=== PATIENT | male | born 1945 | race Caucasian/White ===

== ENCOUNTER → 2019-04-17 | Outpatient (CLI) | payer MEDICARE | END | disposition home or self-care (01) | LOC: PCVCCLINIC 11:00 | PROVIDERS: ATTEND Internal Medicine | DX: I25.10 Atherosclerotic heart disease of native coronary artery without angina pectoris (principal); I10 Essential (primary) hypertension; E11.9 Type 2 diabetes mellitus without complications; E78.5 Hyperlipidemia, unspecified | CPT/HCPCS: 93005; G0463 ==

== ENCOUNTER → 2019-05-02 | Outpatient (CLI) | payer MEDICARE ==
--- NOTE | 2019-05-04 11:59 | PCVCIMAG ---
APPROVED REPORT Imaging Protocol: Rest Tc-99m/Stress Tc-99m 1 day Study performed: 05/02/2019 09:06:10 Indication: CAD Patient Location: Out-Patient Stress Nurse: Evonne Lane RN, [facility] Aden Tech:Carlito Vasquez NMMARIVELB Ht: 6 ft 1 in Wt: 252 lbs BSA: 2.37 m2 HR: 54 bpm BP: 127/60 mmHg BMI: 33.2 Rhythm: Sinus Bradycardia, Incomplete RBBB Medical History Medical History: Age, Hyperlipidemia, HTN, HI, Dm Non insulin, Former Smoker Medications: Proscar, Lisinopril, Simvastatin Allergies: No known drug allergies Previous Cardiac Procedures: PCI Pretest Chest Pain Characteristics: No chest pain Exercise History: Physically active Resting Data Rest SPECT myocardial perfusion imaging was performed in supine position 45 minutes following the intravenous injection of 11.8 mCi of Tc-99m Sestamibi. Time of rest injection: 0830 Date: 05/02/2019 Administration Route: IV Administration Site: Right Wrist Pharmacologic Stress Pharmacologic stress test was performed by injecting Regadenoson 0.4 mg IV push over 10-15 seconds immediately followed by the intravenous injection of 34.8 mCi of Tc-99m Sestamibi. Time of stress injection: 1015 Date: 05/02/2019 Administration Route: IV Administration Site: Right Wrist Gated Stress SPECT was performed 45 minutes after stress injection. The images were gated to evaluate regional wall motion and calculate left ventricular ejection fraction. Stress Test Details Stress Test: Pharmacologic stress testing performed using 0.4 mg of regadenoson per 5 mL given IV over 10 seconds. Reason for pharmacologic stress test: Toe Fracture. HRMax Heart Rate (APMHR): 149 bpm Resting HR: 54 bpmTarget HR (85% APMHR): 126 bpm Max HR Achieved: 78 bpm % of APMHR: 52 Recovery HR: 67 bpm BP Resting BP: 127/60 mmHg Max BP: 119/57 mmHg Recovery BP: 121/59 mmHg ECG Resting ECG: Sinus Gregory,Incomplete RBBB Stress ECG: Sinus Rhythm, Incomplete RBBB Arrhythmia: None Recovery ECG: Sinus Rhythm, Incomplete RBBB Clinical Reason for Termination: Completed protocol Stress Symptoms: Dyspnea, Leg Fatigue, Leg Heaviness Exercise duration: min 55 sec Symptoms resolved during recovery. Stress ECG Conclusion 1. adequate response to iv lexiscan 2. inadequate heart rate for ecg diagnosis Study Data Post stress, the left ventricular ejection was 61%.. SSS: 7 SRS: 5 SDS: 2 TID = 1.11. Perfusion there is a fixed moderate intensity defect involving the entire anteroseptal wall and some noted inferior photopenia likely artifact due to no wall motion abnormalities, clinical correlation suggested Wall Motion Normal left ventricular wall motion. Nuclear Conclusion ECG Findings: non-diagnostic Clinical Findings: negative for ischemia Nuclear Findings: negative for ischemia but photopenia noted Exercise Capacity: not assessed Left Ventricular Function: normal 1. intermediate risk study based on extent of photopenia 2. post stress lvef 61% without wall motion abnormalities Interpreted by: Morelia Barajas MD Electronically Approved: 05/04/2019 11:34:47 <Conclusion> 1. adequate response to iv lexiscan 2. inadequate heart rate for ecg diagnosis
== END | disposition home or self-care (01) ==
LOC: PCVCIMAG 08:00
PROVIDERS: ATTEND Internal Medicine
DX: I25.10 Atherosclerotic heart disease of native coronary artery without angina pectoris (principal); I10 Essential (primary) hypertension; E78.5 Hyperlipidemia, unspecified; E11.9 Type 2 diabetes mellitus without complications; Z79.4 Long term (current) use of insulin; Z87.891 Personal history of nicotine dependence
CPT/HCPCS: 78452; 93017; A9500

== ENCOUNTER → 2019-05-09 | Outpatient (CLI) | payer MEDICARE | END | disposition home or self-care (01) | LOC: PCVCCLINIC 13:00 | PROVIDERS: ATTEND Internal Medicine | DX: I25.10 Atherosclerotic heart disease of native coronary artery without angina pectoris (principal); I10 Essential (primary) hypertension; E11.9 Type 2 diabetes mellitus without complications; E78.5 Hyperlipidemia, unspecified; Z79.899 Other long term (current) drug therapy; Z79.84 Long term (current) use of oral hypoglycemic drugs; Z87.891 Personal history of nicotine dependence | CPT/HCPCS: 36415; G0463 ==